=== PATIENT | female | born 1960 | race Caucasian/White ===

== ENCOUNTER 2017-06-14 14:34 | Inpatient (IN) | payer BC, OTHER ==
[2017-06-14] VITALS (7 sets, daily range): BP systolic 152–193; BP diastolic 64–84
[~2017-06-14] VITALS: Ht 172.7 cm; Wt 93.6 kg
[~2017-06-14 14:34] MED LIST: CHANTIX1 MG PO; CYCLOBENZAPRINE10 MG PO; ELAVIL10 MG PO; ELAVIL25 MG PO; ENDOCET 5-3251 EACH PO; HYDROCHLOROTH12.5 M3 PO; HYDROCODONE BT1 EACH PO; JANUVIA100 MG PO; LATUDA20 MG PO; LOPRESSOR25 MG PO; LORTAB 5-325 M1 EACH PO; MOTRIN600 MG PO; PROMETHAZINE HC25 M1 PO; PROTONIX40 MG PO; PROZAC20 MG PO; VICOPROFEN1 TABLET PO; XANAX0.5 MG PO
[2017-06-14 15:02] LABS: HEMATOCRIT 22.3 % (36.0-46.0); MCH 19.2 PG (29.0-34.0); MCHC 28.3 G/DL (30.0-36.0); MEAN PLAT.VOLUME 8.9 uM^3 (9.5-12.4); PLATELET COUNT 653 K/uL (156-360); RBC DIS.WIDTH-CV 16.8 % (11.8-14.6); RBC DIS.WIDTH-SD 41.2 % (39-53); RED BLOOD COUNT 3.28 M/uL (3.80-5.20)
[2017-06-14 15:04] LABS: CHLORIDE 105 mEq/L (99-109); SODIUM 140 mEq/L (136-147)
[2017-06-14 15:06] LABS: GLUCOSE 173 mg/dL (70-99)
[2017-06-14 15:07] LABS: ANION GAP 15 MEQ/L (2-14)
[2017-06-14 15:09] LABS: GFR ESTIMATE (CALCULATED) 45 mL/min/
[2017-06-14 15:10] LABS: UREA NITROGEN (BUN) 22 mg/dL (9-23)
[2017-06-14] MEDS ORDERED: ZOLOFT100 MG PO (18:32)
[2017-06-14] MEDS ORDERED: ZANTAC150 MG PO (18:32)
[2017-06-14] MEDS ORDERED: SYNTHROID50 MCG PO (18:33)
[2017-06-14] MEDS ORDERED: AMARYL1 MG PO (19:03)
[2017-06-14 19:07] LABS: FERRITIN 7 NG/ML (10-291)
[2017-06-14 19:39] LABS: SAMPLE HEMOLYSIS CHECK 0; SAMPLE ICTERIC CHECK 0; SAMPLE LIPEMIA CHECK 0
[2017-06-14 19:49] LABS: IMM.RETIC FRACTION 24.3 % (3-19); RETIC HGB EQUIVALENT 17.9 (28-36); RETICULOCYTE COUNT 1.2 % (0.5-1.8)
[2017-06-14 19:53] LABS: INTER. NORMALIZED RATIO 1.1; PROTHROMBIN TIME 12.1 SEC (10.2-12.9)
[2017-06-14 20:02] LABS: TOTAL BILIRUBIN 0.1 mg/dL (0.0-1.0)
[2017-06-14 20:03] LABS: ALKALINE PHOSPHATASE 64 IU/L (3-129)
[2017-06-14 20:20] LABS: DIRECT BILIRUBIN 0.1 mg/dL (0.0-0.3)
[2017-06-14 20:41] LABS: HEMATOCRIT 20.3 % (36.0-46.0); MCH 19.3 PG (29.0-34.0); MCHC 28.1 G/DL (30.0-36.0); MCV 68.8 FL (83-99); PLATELET COUNT 604 K/uL (156-360); RBC DIS.WIDTH-CV 16.9 % (11.8-14.6); RBC DIS.WIDTH-SD 41.9 % (39-53); RED BLOOD COUNT 2.95 M/uL (3.80-5.20); WHITE BLOOD COUNT 10.2 K/uL (4.1-10.2)
[2017-06-14 21:09] LABS: POINT-OF-CARE METER ID UU14188625
[2017-06-14 21:21] LABS: IRON < 10 MCG/DL (35-150)
[2017-06-15] VITALS (10 sets, daily range): BP systolic 146–195; BP diastolic 58–86
[2017-06-15 06:10] LABS: ABS NEUTROPHIL COUNT 7.5; ANISOCYTOSIS 2+; BAND NEUTROPHILS 0.9 % (0-8.0); BASOPHILS 0.9 %; EOSINOPHIL ABS CT 0.2; EOSINOPHILS 1.8 % (0-5.0); GIANT PLATELETS 1+; HYPOCHROMASIA 3+; INSTRUMENT ABS NEUTROPHIL CT 6.7 K/uL; LYMPHOCYTES 22.1 % (15.0-45.0); MICROCYTOSIS 2+; PLAT.SUFFICIENCY INCREASED; PLATELET CLUMPS PRESENT - PLATELET COUNT APPEARS INCREASED; SEG.NEUTROPHILS 72.5 % (46.0-76.0); STOMATOCYTES 1+
[2017-06-15 07:10] LABS: BASOPHIL COUNT 0.1 K/uL (0-0.1); EOSINOPHIL (%) 1.7 % (0-5); EOSINOPHIL COUNT 0.2 K/uL (0-0.3); HEMATOCRIT 27.7 % (36.0-46.0); IMMATURE GRANULOCYTE (%) 0.5 % (0.0-0.7); INSTRUMENT ABS NEUTROPHIL CT 5.4 K/uL; LYMPHOCYTE COUNT 2.5 K/uL (1.0-2.8); MCH 21.4 PG (29.0-34.0); MCV 71.6 FL (83-99); MEAN PLAT.VOLUME 8.8 uM^3 (9.5-12.4); MONOCYTE (%) 8.8 % (3-12); MONOCYTE COUNT 0.8 K/uL (0-0.8); NEUTROPHIL (%) 60.8 % (45-76); NEUTROPHIL COUNT 5.4 K/uL (1.8-6.4); PLATELET COUNT 575 K/uL (156-360); RBC DIS.WIDTH-CV 18.7 % (11.8-14.6); RBC DIS.WIDTH-SD 48.2 % (39-53); WHITE BLOOD COUNT 8.9 K/uL (4.1-10.2)
[2017-06-15 07:11] LABS: RED BLOOD COUNT 3.87 M/uL (3.80-5.20)
[2017-06-15 07:36] LABS: ANION GAP 11 MEQ/L (2-14); CHLORIDE 102 MEQ/L (99-109); GFR ESTIMATE (CALCULATED) 54 mL/min/; GLUCOSE 126 mg/dL (70-99); POTASSIUM 3.9 MEQ/L (3.7-5.4); SAMPLE HEMOLYSIS CHECK 0; SAMPLE ICTERIC CHECK 0; SAMPLE LIPEMIA CHECK 0; SODIUM 139 MEQ/L (136-147); UREA NITROGEN (BUN) 19 mg/dL (9-23)
[2017-06-15 07:37] LABS: POINT-OF-CARE METER ID UU13113717
[2017-06-15 11:36] LABS: POINT-OF-CARE METER ID UU14188625
[2017-06-16 00:26] VITALS: BP 138/65
[2017-06-16 07:33] VITALS: BP 147/67
[2017-06-16 07:43] LABS: POINT-OF-CARE METER ID UU14188625
[2017-06-16 09:26] LABS: BASOPHIL COUNT 0.1 K/uL (0-0.1); EOSINOPHIL (%) 3.6 % (0-5); EOSINOPHIL COUNT 0.3 K/uL (0-0.3); HEMATOCRIT 31.6 % (36.0-46.0); IMMATURE GRANULOCYTE (%) 0.5 % (0.0-0.7); IMMATURE GRANULOCYTE COUNT 0.1 K/uL; INSTRUMENT ABS NEUTROPHIL CT 5.9 K/uL; LYMPHOCYTE COUNT 2.1 K/uL (1.0-2.8); MCH 21.4 PG (29.0-34.0); MCHC 29.7 G/DL (30.0-36.0); MONOCYTE (%) 8.9 % (3-12); MONOCYTE COUNT 0.8 K/uL (0-0.8); NEUTROPHIL (%) 63.5 % (45-76); NEUTROPHIL COUNT 5.9 K/uL (1.8-6.4); PLATELET COUNT 612 K/uL (156-360); RBC DIS.WIDTH-CV 19.1 % (11.8-14.6); RBC DIS.WIDTH-SD 48.9 % (39-53); RED BLOOD COUNT 4.39 M/uL (3.80-5.20); WHITE BLOOD COUNT 9.2 K/uL (4.1-10.2)
[2017-06-16 12:38] LABS: POINT-OF-CARE METER ID UU14188625
[2017-06-16] MEDS ORDERED: VITRON-C TABLE1 EACH PO (13:02)
== END 2017-06-16 14:05 | disposition home or self-care (01) | DRG 395 ==
LOC: EME 14:34 → EDOF 19:14 → 5SOUTH 19:14 → ENRESERV 19:20 → 5SOUTH 20:33
PROVIDERS: Internal Medicine; Physician Assistant Medical
PROC: 30233N1 Transfusion of Nonautologous Red Blood Cells into Peripheral Vein, Percutaneous Approach (ICD-10-PCS; principal; 2017-06-14)
DX: K95.09 Other complications of gastric band procedure (principal); D50.8 Other iron deficiency anemias; Y83.1 Surgical operation with implant of artificial internal device as the cause of abnormal reaction of the patient, or of later complication, without mention of misadventure at the time of the procedure; I10 Essential (primary) hypertension; E11.9 Type 2 diabetes mellitus without complications; R29.6 Repeated falls; E03.9 Hypothyroidism, unspecified; K21.9 Gastro-esophageal reflux disease without esophagitis; M48.06 Spinal stenosis, lumbar region; K58.9 Irritable bowel syndrome, unspecified; E55.9 Vitamin D deficiency, unspecified; G89.29 Other chronic pain; F31.9 Bipolar disorder, unspecified; F41.9 Anxiety disorder, unspecified; Z79.84 Long term (current) use of oral hypoglycemic drugs; Z98.1 Arthrodesis status; Z82.3 Family history of stroke; Z87.891 Personal history of nicotine dependence
CPT/HCPCS: 36415; 80048; 80076; 82272; 82607; 82728; 82746; 82948; 83540; 84443; 84466; 85007; 85025; 85025 91; 85027; 85045; 85060; 85610; 86850; 86900; 86901; 86920; 93005; 99281; 99285; J0360; J1815; J1940; J2405; J7050; P9016; Q0138

== ENCOUNTER 2017-12-26 21:31 | Inpatient (IN) | payer OTHER, BC ==
[~2017-12-26] VITALS: Ht 170.2 cm; Wt 101.2 kg
[~2017-12-26 21:31] MED LIST changes: +AMARYL1 MG PO; +LATUDA40 MG PO; +SYNTHROID50 MCG PO; +VITRON-C TABLE1 EACH PO; +ZANTAC150 MG PO; +ZOLOFT100 MG PO
[2017-12-27 11:58] VITALS: BP 145/73
[2017-12-27 18:59] VITALS: BP 152/65
[2017-12-27 20:17] VITALS: BP 150/64
[2017-12-28 00:08] VITALS: BP 152/67
[2017-12-28 05:03] VITALS: BP 152/64
[2017-12-28 07:45] VITALS: BP 136/62
[2017-12-28 15:32] VITALS: BP 157/71
== END 2017-12-28 18:12 | disposition home or self-care (01) | DRG 460 ==
LOC: ENRESERV 21:31 → 2SOUTH 12-27 08:21 → ENRESERV 12-27 17:46 → 3EAST 12-27 18:16
PROVIDERS: Neurological Surgery
DX: M48.062 Spinal stenosis, lumbar region with neurogenic claudication (principal); M47.816 Spondylosis without myelopathy or radiculopathy, lumbar region; M71.38 Other bursal cyst, other site; E66.9 Obesity, unspecified; Z68.34 Body mass index [BMI] 34.0-34.9, adult; E03.9 Hypothyroidism, unspecified; F31.9 Bipolar disorder, unspecified; F41.9 Anxiety disorder, unspecified; K21.9 Gastro-esophageal reflux disease without esophagitis; Z98.1 Arthrodesis status; Z98.84 Bariatric surgery status; Z87.891 Personal history of nicotine dependence; Z91.041 Radiographic dye allergy status
CPT/HCPCS: 72100; 76000; 82948; 86850; 86900; 86901; 87641; A6214; J0690; J1580; J2250; J2405; J2930; J3010; J3370; J3480; Q0175; S0020